=== PATIENT | female | born 1990 | race Caucasian/White ===

== ENCOUNTER 2016-04-25 23:59 | Emergency (ER) | payer OTHER ==
--- NOTE | ~2016-04-25 | CR181 ---
[facility] A Service of [facility] RADIOLOGY TEXT RESULTS PATIENT: GUTIERREZ VIDAL LOCATION: [facility] : 88 UNIT #: [id number] AGE: [address]: SIMÓN AVITIA APRN SEX: F ORDER DR: [id number] [facility] [address]. [place], [place] [address] [id number] E MR#: [id number] Acc #: [id number] NAME: GUTIERREZ VIDAL : 1990 SEX: F STUDY DATE/TIME: 04/26/2016 0:23 UNIT: CFTX ROOM: STUDY DESCRIPTION: CR Lumbar Spine 2 or 3 Views Attending Physician: Simón Avitia Aprn Ordering Physician: Simón Avitia Aprn Primary Care Physician: Chicho Bailon Aprn MEDICAL IMAGING REPORT This report is preliminary unless electronic signature is present EXAM Lumbar spine, 3 views COMPARISON November 29, 2015, October 31, 2014. INDICATIONS 26-year-old female with low back pain and bilateral leg tingling today. FINDINGS Exam is limited by underpenetration. This may be body habitus related. There are likely a chronic pars defects at L5. No associated anterolisthesis. No evidence of acute fracture. No definite degenerative change. IMPRESSION Exam is limited by underpenetration. This may be secondary to patient body habitus. There is questionable chronic pars defect at L5. There is no evidence of acute fracture or subluxation. No other significant findings. Dictated by... Javier Sparks M.D. THIS IS AN ELECTRONICALLY VERIFIED REPORT Javier Sparks M.D. at 04/30/2016 7:34 AM Lb TD: 04/26/2016 07:28 JOB #: [id number] MEDICAL IMAGING REPORT [facility] A Service of [facility] & [facility] RADIOLOGY TEXT RESULTS PATIENT: GUTIERREZ VIDAL LOCATION: [facility] : 88 UNIT #: [id number] AGE: [address]: SIMÓN AVITIA APRN SEX: F ORDER DR: ANDREZ
[~2016-04-25 23:59] MED LIST: ACETAMINOPHEN PO; ACETAMINOPHEN325 MG PO; ATARAX PO; BENTYL10 MG DOB; CIPRO PO; CIPRO250 MG PO; DEPO-PROVER150 MG/ML INJ; DESYREL50 M1 PO; DILANTIN KAPSE100 MG PO; DILANTIN PO; FLAGYL PO; FLEXERIL10 M1 PO; FLEXERIL10 MG PO; HYDROCODON-ACE1 EAC7 PO; KEFLEX500 M2 PO; KEPPRA100 MG/ML PO; KEPPRA1000 MG PO; KEPPRA750 MG PO; KLONOPIN1 MG PO; LORTAB 10-5001 EACH PO; LORTAB 5/500 TA1 TA1 PO; MOTRIN600 MG PO; MYLANTA GAS80 MG PO; NAPROXEN PO; NO MEDICATIONS; OMEPRAZOLE20 M1 PO; ORUDIS75 M1 PO; PEPCID AC20 M1 PO; PERCOCET 51 UDTAB 5/ DOB; PERCOCET 7.5-31 EACH; PERCOCET 7.5-31 EACH PO; PERCOCET5/325 PO; PHENERGAN PO; PHENERGAN PR; PHENERGAN25 M1 PO; PHENERGAN25 MG PO; PREDNISONE1 MG PO; PRILOSEC20 MG PO; REGLAN10 MG PO; RELAFEN PO; ROBAXIN500 MG PO; SEROQUEL XR300 M1 PO; TOPAMAX; TOPAMAX PO; TOPAMAX25 MG PO; TOPAMAX50 MG PO; TYLENOL #3 PO; VIBRAMYCIN100 M1 PO; VOLTAREN50 MG PO; VOLTAREN75 MG PO; ZANTAC PO; ZANTAC150 MG PO
[2016-06-08] MEDS ORDERED: COD LIVER OIL1 EACH (23:12)
[2016-06-08] MEDS ORDERED: VOL-CARE RX TA1 EACH (23:12)
[2016-06-08] MEDS ORDERED: TOPAMAX (23:13)
[2016-06-08] MEDS ORDERED: TYLENOL #3 (23:13)
== END 2016-04-26 02:33 | disposition home or self-care (01) ==
LOC: CFTX 23:59
DX: S33.5XXA Sprain of ligaments of lumbar spine, initial encounter (principal); M54.41 Lumbago with sciatica, right side; M54.42 Lumbago with sciatica, left side; Z90.49 Acquired absence of other specified parts of digestive tract; Z91.040 Latex allergy status; Z88.5 Allergy status to narcotic agent; Z88.8 Allergy status to other drugs, medicaments and biological substances; Z91.030 Bee allergy status; Z91.013 Allergy to seafood; X58.XXXA Exposure to other specified factors, initial encounter
CPT/HCPCS: 72100; 99283

== ENCOUNTER 2016-05-18 23:59 | Emergency (ER) | payer OTHER ==
--- NOTE | ~2016-05-18 | US134 ---
[facility] A Service of [facility] RADIOLOGY TEXT RESULTS PATIENT: GUTIERREZ VIDAL LOCATION: [facility] : 88 UNIT #: [id number] AGE: [address]: Yovany Augustin MD SEX: F ORDER DR: [id number] [facility] [address] [place], [place] [address] [id number] E MR#: [id number] Acc #: [id number] NAME: GUTIERREZ VIDAL : 1990 SEX: F STUDY DATE/TIME: 05/19/2016 3:10 UNIT: [facility] ROOM: STUDY DESCRIPTION: US Transvaginal Attending Physician: Yovany Augustin M.D. Ordering Physician: Yovany Augustin M.D. Primary Care Physician: Chicho Bailon Aprn MEDICAL IMAGING REPORT This report is preliminary unless electronic signature is present EXAM ultrasound pelvis 05/19/2016. HISTORY 26-year-old female in the ED complaining of 2-day history of left lower quadrant pain. TECHNIQUE Pelvic ultrasound examination was performed endovaginally. Transabdominal imaging was precluded by an empty urinary bladder and patient body habitus. FINDINGS Uterus is normal in size and appearance. No visible uterine mass or endometrial fluid. The ovaries are not identified on this examination. Both ovaries appeared normal on CT examination 04/21/2016. No visible pelvic mass or free pelvic fluid. IMPRESSION Negative pelvic ultrasound examination with limitations as noted above. The ovaries are not identified. Dictated by... Billy Morse M.D. THIS IS AN ELECTRONICALLY VERIFIED REPORT Billy Morse M.D. at 05/19/2016 9:58 PM RGW/abihnav TD: 05/19/2016 12:19 [facility] A Service of [facility] RADIOLOGY TEXT RESULTS PATIENT: GUTIERREZ VIDAL LOCATION: [facility] : 88 UNIT #: [id number] AGE: [address]: Yovany Augustin MD SEX: F ORDER DR: JOB #: [id number] MEDICAL IMAGING REPORT COPY
[2016-05-19 01:46] LABS: URINE SOURCE CLEAN CATCH
[2016-05-19 01:52] LABS: URINE APPEARANCE CLEAR; URINE BILIRUBIN NEG (NEG); URINE BLOOD NEG (NEG); URINE COLOR YELLOW; URINE GLUCOSE NEG (NEG); URINE KETONE NEG (NEG); URINE LEUKOCYTE ESTERASE NEG (NEG); URINE NITRATE NEG (NEG); URINE PH 5.5 (5-8); URINE PROTEIN NEG (NEG); URINE UROBILINOGEN 0.2 MG/DL (NEG)
[2016-05-19 02:00] LABS: CULTURE INDICATED? NO
[2016-05-21 12:10] LABS: CHLAMYDIA TRACH Not Detected (Not Detected); N GONOR Not Detected (Not Detected)
[2016-06-08] MEDS ORDERED: VOL-CARE RX TA1 EACH (23:12)
[2016-06-08] MEDS ORDERED: COD LIVER OIL1 EACH (23:12)
[2016-06-08] MEDS ORDERED: TYLENOL #3 (23:13)
[2016-06-08] MEDS ORDERED: TOPAMAX (23:13)
== END 2016-05-19 04:30 | disposition home or self-care (01) ==
LOC: CED 23:59
PROVIDERS: Emergency Medicine
DX: R10.2 Pelvic and perineal pain (principal); R11.0 Nausea; Z90.49 Acquired absence of other specified parts of digestive tract; Z98.51 Tubal ligation status; Z91.040 Latex allergy status; Z91.030 Bee allergy status; Z91.013 Allergy to seafood; Z88.5 Allergy status to narcotic agent
CPT/HCPCS: 36415; 76830; 81003; 84703; 87491; 87591; 87808; 87905; 99284

== ENCOUNTER 2016-06-08 23:30 | Emergency (ER) | payer OTHER ==
--- NOTE | ~2016-06-08 | CT4 ---
[facility] A Service of [facility] RADIOLOGY TEXT RESULTS PATIENT: GUTIERREZ VIDAL LOCATION: [facility] : 88 UNIT #: [id number] AGE: [address]: Babar Alfred MD SEX: F ORDER DR: [id number] [address] [address] [id number] E MR#: [id number] Acc #: [id number] NAME: GUTIERREZ VIDAL : 1990 SEX: F STUDY DATE/TIME: 06/09/2016 02:26 UNIT: SED ROOM: STUDY DESCRIPTION: CT Abd and Pelv Wo Cont Attending Physician: Babar Alfred M.D. Ordering Physician: Babar Alfred M.D. Primary Care Physician: Chicho Bailon Aprn MEDICAL IMAGING REPORT This report is preliminary unless electronic signature is present. EXAM CT abdomen and pelvis 06/09/2016 at 02:26 INDICATION Left mid abdominal pain and burning with urination for the last 8 hours. Pain is currently 8/10. TECHNIQUE Axial images were obtained through the abdomen and pelvis without contrast. Multiplanar reformats were obtained. Comparison made with 04/21/2016. This CT examination was performed with one or more of the following radiation dose reduction techniques: automatic exposure control, adjustment of mA and/or kV according to patient size, and iterative reconstruction. FINDINGS ABDOMEN: Lung bases remain clear. Gallbladder surgically absent. Calcifications in the medullary pyramids bilaterally are compatible with medullary nephrocalcinosis. Tiny nonobstructing stones are present in both kidneys. No ureteral stones are identified, and there is no hydronephrosis. Unenhanced solid organs are otherwise normal. No free fluid or adenopathy. Unopacified GI tract is normal. PELVIS: The appendix is surgically absent. Unopacified GI tract otherwise is normal. Solid pelvic organs are grossly normal. There are no lower ureteral stones. Urinary bladder is normal. There are bilateral L5 pars defects without spondylolisthesis at L5-S1. IMPRESSION 1. Bilateral medullary nephrocalcinosis with tiny bilateral nonobstructing renal stones. No ureteral stones are seen. There is no hydronephrosis. 2. Appendectomy and cholecystectomy. [facility]. [facility] A Service of [facility] RADIOLOGY TEXT RESULTS PATIENT: GUTIERREZ VIDAL LOCATION: [facility] : 88 UNIT #: [id number] AGE: [address]: Babar Alfred MD SEX: F ORDER DR: 3. Unenhanced abdomen and pelvis CT is otherwise normal. Dictated by... Gary Holbrook Jr., M.D. THIS IS AN ELECTRONICALLY VERIFIED REPORT Gary Holbrook Jr., M.D. at 06/09/2016 11:15 AM URI/humera TD: 06/09/2016 08:34 JOB #: [id number] MEDICAL IMAGING REPORT Page 1 of 1
[~2016-06-08 23:30] MED LIST changes: +COD LIVER OIL1 EACH; +TYLENOL #3; +VOL-CARE RX TA1 EACH
[2016-06-09 02:04] LABS: URINE SOURCE CLEAN CATCH
[2016-06-09 02:07] LABS: MICRO INDICATED? NO; URINE APPEARANCE CLEAR; URINE BILIRUBIN NEG (NEG); URINE BLOOD NEG (NEG); URINE COLOR YELLOW; URINE GLUCOSE NEG (NORM); URINE KETONE NEG (NEG); URINE LEUKOCYTE ESTERASE NEG (NEG); URINE NITRATE NEG (NEG); URINE PH 7.5 (5-8); URINE PROTEIN NEG (NEG); URINE SPECIFIC GRAVITY 1.015 (1.003-1.035)
== END 2016-06-09 03:39 | disposition home or self-care (01) ==
LOC: SED 23:30
PROVIDERS: Emergency Medicine
DX: R10.9 Unspecified abdominal pain (principal); R11.2 Nausea with vomiting, unspecified; Z88.8 Allergy status to other drugs, medicaments and biological substances; Z91.040 Latex allergy status; Z79.899 Other long term (current) drug therapy
CPT/HCPCS: 74176; 81003; 84703; 99284; J2270; J2550

== ENCOUNTER 2016-09-23 04:16 | Emergency (ER) | payer OTHER ==
[~2016-09-23] VITALS: Ht 160 cm; Wt 131.5 kg
[2016-09-23] MEDS ORDERED: NO MEDICATIONS (04:23)
[2016-09-23 04:42] LABS: URINE SOURCE CLEAN CATCH
[2016-09-23 04:44] LABS: URINE APPEARANCE SL CLOUDY; URINE BILIRUBIN NEG (NEG); URINE BLOOD 1+ (NEG); URINE COLOR ORANGE; URINE KETONE NEG (NEG); URINE LEUKOCYTE ESTERASE 2+ (NEG); URINE NITRATE POS (NEG); URINE PH 5.5 (5-8); URINE PROTEIN 1+ (NEG); URINE SPECIFIC GRAVITY 1.015 (1.003-1.035)
[2016-09-23 04:47] LABS: MICRO INDICATED? YES; URINE GLUCOSE NORM (NORM)
[2016-09-23 04:53] LABS: CULTURE INDICATED? YES; URINE BACTERIA 2+ (NEG); URINE MUCUS PRESENT; URINE SQUAMOUS EPITHELIAL CELL FEW /[HPF]; URINE WBC 100-200 /[HPF] (0-5); URINE YEAST PRESENT
[2016-09-23] MEDS ORDERED: BACTRIM DS TAB1 EACH PO (05:24)
[2016-09-23] MEDS ORDERED: PYRIDIUM PO (05:25)
== END 2016-09-23 05:28 | disposition home or self-care (01) ==
LOC: SED 04:16
PROVIDERS: Emergency Medicine
DX: N39.0 Urinary tract infection, site not specified (principal); F31.9 Bipolar disorder, unspecified
CPT/HCPCS: 81003; 84703; 87086; 99283

== ENCOUNTER 2016-09-24 15:30 | Emergency (ER) | payer OTHER ==
[~2016-09-24 15:30] MED LIST changes: +BACTRIM DS TAB1 EACH PO; +PYRIDIUM PO
== END 2016-09-24 17:29 | disposition home or self-care (01) ==
LOC: SED 15:30
DX: N39.0 Urinary tract infection, site not specified (principal); J45.909 Unspecified asthma, uncomplicated; F31.9 Bipolar disorder, unspecified; Z90.49 Acquired absence of other specified parts of digestive tract; Z98.51 Tubal ligation status; Z98.890 Other specified postprocedural states; Z87.442 Personal history of urinary calculi; Z79.2 Long term (current) use of antibiotics; Z91.030 Bee allergy status; Z91.040 Latex allergy status; Z91.013 Allergy to seafood; Z88.8 Allergy status to other drugs, medicaments and biological substances
CPT/HCPCS: 99283